=== PATIENT | female | born 1975 | race Caucasian/White ===

== ENCOUNTER 2023-02-12 07:56 | Outpatient (CLI) | payer OTHER, SELFPAY | END 2023-02-12 07:57 | disposition home or self-care (01) | LOC: NFLDREF 02-14 15:07 | PROVIDERS: PCP Physician Assistant Medical; Referring Provider Physician Assistant Medical; Visit Provider Physician Assistant Medical | DX: Z13.220 Encounter for screening for lipoid disorders (principal); Z13.29 Encounter for screening for other suspected endocrine disorder; R82.90 Unspecified abnormal findings in urine; Z13.228 Encounter for screening for other metabolic disorders | CPT/HCPCS: 80053; 80061; 84443; 87086; 87186 ==

== ENCOUNTER 2023-04-15 14:58 | Outpatient (CLI) | payer OTHER, SELFPAY ==
--- NOTE | 2023-04-15 15:20 | CRLHL7_ITS ---
For Patients: As a result of the Century Cures Act, medical imaging exams and procedure reports are released immediately into your electronic medical record. You may view this report before your referring provider. If you have questions, please contact your health care provider. BILATERAL SCREENING MAMMOGRAM WITH COMPUTER-AIDED DETECTION AND TOMOSYNTHESIS TECHNIQUE: CC and MLO views were obtained. These mammographic images have been obtained using full-field digital technique. These mammographic images were interpreted with the benefit of computer-aided detection. Breast Tomosynthesis was used in this interpretation. COMPARISON FILM: 02/23/21, 10/22/16, 10/17/09. FINDINGS: There are scattered areas of fibroglandular density IMPRESSION: There is no radiographic evidence for malignancy. ASSESSMENT: BI-RADS Category 1: Negative RECOMMENDATION: Routine screening mammogram in 1 year. A lay language report of this examination will be provided to the patient. Brian Ann M.D. Diagnostic/Nuclear Medicine Radiologist [email or web address] LAURA/Dictated by: Brian Ann MD @ 04/16/2023 9:07:00 AM (Electronically Signed)
== END 2023-04-15 14:59 | disposition home or self-care (01) ==
PROVIDERS: PCP Physician Assistant Medical; Visit Provider Physician Assistant Medical
DX: Z12.31 Encounter for screening mammogram for malignant neoplasm of breast (principal)
CPT/HCPCS: 77063; 77067

== ENCOUNTER 2023-05-22 12:21 | Outpatient (CLI) | payer OTHER, SELFPAY | END 2023-05-22 12:22 | disposition home or self-care (01) | PROVIDERS: PCP Physician Assistant Medical; Visit Provider Physician Assistant Medical | DX: R73.09 Other abnormal glucose (principal) | CPT/HCPCS: 82607 ==

== ENCOUNTER 2023-08-18 16:15 | Outpatient (RCR) | payer OTHER, SELFPAY | END 2023-09-30 15:55 | disposition home or self-care (01) | PROVIDERS: PCP Physician Assistant Medical; Visit Provider Physician Assistant Medical | DX: M25.512 Pain in left shoulder (principal); M54.9 Dorsalgia, unspecified; R20.0 Anesthesia of skin; M79.602 Pain in left arm; M54.16 Radiculopathy, lumbar region; M54.12 Radiculopathy, cervical region; Z51.89 Encounter for other specified aftercare | CPT/HCPCS: 97110; 97112; 97140; 97161 ==

== ENCOUNTER 2025-05-16 10:02 | Outpatient (CLI) | payer OTHER, SELFPAY | END 2025-05-16 10:03 | disposition home or self-care (01) | LOC: NFLDREF 05-17 16:08 | PROVIDERS: PCP Physician Assistant Medical; Referring Provider Physician Assistant Medical; Visit Provider Physician Assistant Medical | DX: R73.09 Other abnormal glucose (principal); Z13.6 Encounter for screening for cardiovascular disorders | CPT/HCPCS: 80053; 80061 ==

== ENCOUNTER 2025-05-26 08:33 | Outpatient (CLI) | payer OTHER, SELFPAY ==
--- NOTE | 2025-05-26 08:45 | CRLHL7_ITS ---
For Patients: As a result of the Century Cures Act, medical imaging exams and procedure reports are released immediately into your electronic medical record. You may view this report before your referring provider. If you have questions, please contact your health care provider. INDICATION: BILATERAL SCREENING MAMMOGRAM, ASYMPTOMATIC 49 Y/O FEMALE COMPARISON: 04/15/2023, 02/23/2023, 11/20/2021 TECHNIQUE: Digital mammogram in CC and MLO projections including computer-aided detection (CAD) and tomosynthesis. BREAST COMPOSITION: The breasts are almost entirely fatty. FINDINGS: No suspicious findings. ASSESSMENT: BI-RADS 1 Negative RECOMMENDATION: Annual screening mammogram. A lay language report of this examination will be provided to the patient. Dictated by: Brooklyn Manzo MD @ 05/29/2025 18:43:20 (Electronically Signed)
== END 2025-05-26 08:34 | disposition home or self-care (01) ==
LOC: MAMMO 08:34
PROVIDERS: PCP Physician Assistant Medical; Visit Provider Emergency Medicine
DX: Z12.31 Encounter for screening mammogram for malignant neoplasm of breast (principal)
CPT/HCPCS: 77063; 77067

== ENCOUNTER 2025-05-31 09:34 | Outpatient (CLI) | payer OTHER, SELFPAY ==
--- NOTE | 2025-06-07 09:07 | W.PM.SLEEP ---
Sleep Study Details Details Interpreting Provider: Cosme Date of Sleep Study: 05/31/25 Sleep Study Details: STUDY TYPE:? Home unattended ? BMI:? 34 ORDERING PROVIDER:? Cosme INDICATION:? Concerns about sleep apnea ? SLEEP SUMMARY:? 513 minutes monitored RESPIRATORY SUMMARY:? AHI 48.7 per rule 1A, 39.6 per CMS guideline Central index 7.8 Low oxygen 78 1.6% of study oxygen less than 90% Snoring 96.1% PERIODIC LIMB MOVEMENTS OF SLEEP:? Not recorded CARDIAC:? Range 57-102, mean 71.1 beats per minute IMPRESSION:? Severe obstructive sleep apnea with some central apneas RECOMMENDATION: Either in-lab titration or AutoSet CPAP. If AutoSet CPAP issues close follow-up is recommended.
== END 2025-05-31 09:35 | disposition home or self-care (01) ==
LOC: SLEEP 09:35
PROVIDERS: PCP Physician Assistant Medical; Visit Provider Otolaryngology
DX: G47.33 Obstructive sleep apnea (adult) (pediatric) (principal)
CPT/HCPCS: 95806